=== PATIENT | male | born 1940 | race Caucasian/White ===

== ENCOUNTER 2017-06-27 13:21 | Day surgery (SDC) | payer OTHER ==
[~2017-06-27] VITALS: Ht 180.3 cm; Wt 99.0 kg
[~2017-06-27 13:21] MED LIST: BUPIVACAINE/PF 0.5% ONE; ENAL10TA PO; ENAL1TAB5 PO; FEBU40TA PO; PANT40TA3 PO
[2017-06-27 14:08] VITALS: BP 171/105
[2017-06-27] MEDS ORDERED: FENTANYL PF 100 MCG/2ML ONE (14:18)
[2017-06-27] MEDS ORDERED: MIDAZOLAM 1 MG/ML, 2ML ONE (14:18)
[2017-06-27] MEDS ORDERED: LIDOCAINE/PF 1%, 30ML ONE (14:27)
[2017-06-27] MEDS ORDERED: LACTATED RINGERS 1,000 ML IV SCH (14:33)
[2017-06-27] MEDS ORDERED: MULTIVITAMIN PO (14:35)
[2017-06-27] MEDS ORDERED: VITAMIN D PO (14:35)
[2017-06-27] MEDS ORDERED: ONDANSETRON ODT 8 MG ONE (14:38)
[2017-06-27] MEDS ORDERED: ACETAMINOPHEN 500 MG TABLET ONE (14:39)
[2017-06-27] MEDS ORDERED: CEFAZOLIN 1,000 MG ONE (14:41)
[2017-06-27] MEDS ORDERED: DEXAMETHASONE 4 MG/ML, 1ML ONE (14:41)
[2017-06-27] MEDS ORDERED: PROPOFOL 10 MG/ML, 20ML ONE (14:41)
[2017-06-27] MEDS ORDERED: BUPIVACAINE/PF 0.5% INFIL ONE (14:57)
[2017-06-27] MEDS ORDERED: LIDOCAINE 2%, 20ML INFIL ONE (14:57)
[2017-06-27] MEDS ORDERED: ACETAMINOPHEN 500 MG TABLET PO ONE (15:00)
[2017-06-27] MEDS ORDERED: LABETALOL 5MG/ML, 20ML IV PRN (15:00)
[2017-06-27] MEDS ORDERED: PROMETHAZINE 25 MG/ML, 1ML IV PRN (15:00)
[2017-06-27] MEDS ORDERED: FENTANYL PF 100 MCG/2ML IV PRN (15:00)
[2017-06-27] MEDS ORDERED: ALBUTEROL SULFATE 2.5 MG/3 ML NPPB PRN (15:00)
[2017-06-27] MEDS ORDERED: ONDANSETRON ODT 8 MG PO ONE (15:00)
[2017-06-27] MEDS ORDERED: MIDAZOLAM 1 MG/ML, 2ML IV PRN (15:00)
[2017-06-27] MEDS ORDERED: EPHEDRINE 50 MG/ML, 1ML IVPush PRN (15:00)
[2017-06-27] MEDS ORDERED: MEPERIDINE/PF 25MG/0.5ML IVPush PRN (15:00)
[2017-06-27] MEDS ORDERED: hydrALAzine 20 MG/ML, 1ML IV PRN (15:00)
[2017-06-27] MEDS ORDERED: KETOROLAC 30 MG/1 ML IV PRN (15:00)
== END 2017-06-27 16:15 | disposition home or self-care (01) ==
LOC: OR 13:21
PROVIDERS: ATTEND Orthopaedic Surgery
DX: G56.02 Carpal tunnel syndrome, left upper limb (principal); I10 Essential (primary) hypertension; M10.9 Gout, unspecified; Z88.5 Allergy status to narcotic agent; Z88.0 Allergy status to penicillin; Z87.39 Personal history of other diseases of the musculoskeletal system and connective tissue; Z98.890 Other specified postprocedural states
CPT/HCPCS: 29848; J0690; J1100; J2250; J2704; J3010; J3490; Q0162